=== PATIENT | female | born 1990 | race Caucasian/White ===

== ENCOUNTER 2024-07-30 12:27 | Emergency (ER) | payer MEDICAID, SELFPAY ==
[2024-07-30 12:28] VITALS: BMI 23.3
[2024-07-30 13:27] VITALS: BP 117/81; PULSE 109; RESP 16; TEMP 36.9; O2SAT 99
--- NOTE | 2024-07-30 13:33 | XR_ITS ---
Examination: Complete OB ultrasound, less than 14 weeks, transabdominal Date and time of exam: July 22, 2024 1420 hrs. Indications: Pelvic pain and vaginal bleeding onset today Technique: Obstetrical ultrasound images less than 14 weeks performed via transabdominal imaging Findings: A normal shaped single intrauterine gestation is present in the uterus. pole 2.7 cm corresponds to 9 weeks 3 days gestational age Cardiac motion 164 BPM No subchorionic hemorrhage Ultrasonographic survey of visible and placental structures unremarkable. Amniotic fluid volume appears appropriate for this estimated gestational age. Right ovary 3.7 x 4.9 x 4.4 cm arterial flow 30 x 28 mm cyst Left ovary 2.7 x 2.4 cm arterial flow Impression: Viable intrauterine gestation 9 weeks 3 days No subchorionic hemorrhage.
--- NOTE | 2024-07-30 13:33 | PD.EDRME ---
Rapid Medical Screening Exam RME Arrival date/time: 07/30/24 12:27 33-year-old female A0 approximately 8 weeks presents emergency department complaining of vaginal spotting and abdominal cramping that started today. Chief Complaint: Urogenital-Female Time Seen by Provider: 07/30/24 13:24 Vital signs: Vital Signs Temperature 98.4 F 07/30/24 13:27 Pulse Rate 109 H 07/30/24 13:27 Respiratory Rate 16 07/30/24 13:27 Blood Pressure 117/81 07/30/24 13:27 Pulse Oximetry (%) 99 07/30/24 13:27 Oxygen Delivery Method Room Air 07/30/24 13:27 Vital signs reviewed by provider: Yes
[2024-07-30 14:37] LABS: Collection Type, Urine Clean Catch
[2024-07-30 14:41] LABS: Basophils % (Auto) 0 % (0-2.5); Eosinophils % (Auto) 0 % (0-10); Hemoglobin 13.5 g/dL (12.0-16.0); Immature Granulocytes % (Auto) 1 % (0-0); Immature Granulocytes Auto 0.07 Thou/mm3 (0.00-0.00); Lymphocytes % (Auto) 15 % (10-50); Mean Corpuscular HGB Conc 34.6 g/dl (31.0-37.0); Mean Corpuscular Hemoglobin 30.5 pg (25.0-35.0); Mean Corpuscular Volume 88 fL (80-100); Monocytes # (Auto) 0.4 Thou/mm3 (0.0-0.8); Monocytes % (Auto) 3 % (0-12); Neutrophils # (Auto) 10.8 Thou/mm3 (1.8-7.7); Neutrophils % (Auto) 81 % (37-80); Nucleated Red Blood Cell % 0 /100 WBC (0); Platelet Count 531 Thou/mm3 (140-440); RDW Standard Deviation 38.3 fL (36.4-46.3); Red Blood Count 4.42 Miln/mm3 (4.00-5.20); White Blood Count 13.3 Thou/mm3 (3.6-11.0)
[2024-07-30 14:55] LABS: Amorphous Crystals,Urine Present (Absent); Bilirubin,Urine Negative (Negative); Blood,Urine Trace (Negative); Clarity,Urine Turbid (Clear/Hazy); Color,Urine Yellow (Lt Yel-Yel); Culture Indicated,Urine Contaminated; Glucose, Urine Negative (Negative); Ketones,Urine 3+ (Negative); Leukocyte Esterase,Urine Positive (Negative); Nitrite,Urine Positive (Negative); Protein,Urine Trace (Neg - Trace); RBC,Urine 5 /hpf (0-3); Specific Gravity,Urine 1.021 (1.001-1.035); Squamous Epithelial Cell,Urine 17 /hpf (0-5); Urobilinogen,Urine Negative mg/dL (0.0-1.0); WBC,Urine 61 /hpf (0-5)
[2024-07-30 14:57] LABS: Bacteria,Urine 3+
[2024-07-30 14:58] VITALS: BP 119/82; PULSE 105; RESP 19; TEMP 36.8; O2SAT 100
[2024-07-30 15:12] LABS: Alanine Aminotransferase 13 U/L (10-49); Albumin, Serum 4.8 gm/dL (3.5-5.0); Albumin/Globulin Ratio 1.5 (1.2-2.2); Alkaline Phosphatase 72 U/L (46-116); Anion Gap 9 (7-16); Aspartate Amino Transferase 11 U/L (0-34); BUN/Creatinine Ratio 8 Ratio (12-20); Bilirubin,Total 0.2 mg/dL (0.3-1.2); Blood Urea Nitrogen 5 mg/dL (9-23); Calcium 9.7 mg/dL (8.3-10.6); Calcium (Corrected) 9.7 mg/dL (8.5-10.1); Carbon Dioxide 21.4 mMol/L (20.0-31.0); Chloride 106 mMol/L (98-107); Creatinine (Component) 0.6 mg/dL (0.6-1.3); Estimated Creatinine Clearance 122.2 mL/min (>60); Globulin 3.1 gm/dL (2.3-3.5); Glucose 91 mg/dL (74-106); Osmolality,Calculated 269 (275-295); Potassium 3.6 mMol/L (3.4-5.1); Sodium 136 mMol/L (136-145); Total Protein 7.9 gm/dL (5.7-8.2); eGFR > 60 See Note
[2024-07-30 15:49] LABS: Beta HCG,Quantitative 129941 mIU/mL (<5.0)
--- NOTE | 2024-07-30 16:50 | PD.EDFMALE ---
ED Female Urogenital RME/HPI General Chief complaint: Urogenital-Female Stated complaint: ABD PAIN/SPOTTING TODAY, + PREG Time Seen by Provider: 07/30/24 13:24 Arrival date/time: 07/30/24 12:27 This is a 33-year-old female A0 approximately 8 weeks presents emergency department complaining of vaginal spotting and abdominal cramping that started today. NO other symptoms reported. RME / HPI RME / HPI Narrative: 07/30/24 12:27 33-year-old female A0 approximately 8 weeks presents emergency department complaining of vaginal spotting and abdominal cramping that started today. Related Data Previous Rx's ?Medication ?Instructions ?Recorded cephalexin 500 mg capsule 500 mg PO Q8H 7 days #21 caps 07/30/24 Allergies Allergy/AdvReac Type Severity Reaction Status Date / Time No Known Allergies Allergy Verified 07/30/24 12:31 Review of Systems Review of Systems Systems Reviewed: All systems reviewed, normal except as documented Past Medical History Past Medical History Comments PMH COMMENT: denies ED Exam General General appearance: Present alert and in no apparent distress Head Head exam: Present atraumatic Eye Eye exam: Present normal appearance, PERRL and EOMI ENT ENT exam: Present normal exam, normal oropharynx and mucous membranes moist Neck Neck exam: Present normal inspection, full ROM and trachea midline Chest Chest inspection: Present normal inspection and symmetric chest wall rise Respiratory Respiratory exam: Present normal lung sounds bilaterally Cardiovascular Cardiovascular exam: Present regular rate, normal rhythm and normal heart sounds Abdominal Exam Abdominal exam: Present soft Extremities Exam Extremities exam: Present normal inspection and full ROM Back Exam Back exam: Present normal inspection and full ROM Neurological Exam Neurological exam: Present alert, oriented X3 and CN II-XII intact Psychiatric Psychiatric exam: Present normal affect and normal mood Skin Skin exam: Present warm, dry, intact and normal color Course Quality Measures none Orders Category Date Time Status US OB <= 14 weeks fetus Stat Exams 07/30/24 13:33 Completed ABO/RH Type Stat Lab 07/30/24 13:55 Completed Beta HCG,Quantitative Stat Lab 07/30/24 13:55 Completed CBC Stat Lab 07/30/24 13:55 Completed CMP [Comprehensive Metabolic Panel] Stat Lab 07/30/24 13:55 Completed Urinalysis, C/S if Indicated Stat Lab 07/30/24 14:15 Completed Vital Signs Vital signs: Vital Signs Temperature 98.4 F 07/30/24 13:27 Pulse Rate 109 H 07/30/24 13:27 Respiratory Rate 16 07/30/24 13:27 Blood Pressure 117/81 07/30/24 13:27 Pulse Oximetry (%) 99 07/30/24 13:27 Oxygen Delivery Method Room Air 07/30/24 13:27 Urogenital - Female MDM Narrative MDM Narrative:: us : Findings: A normal shaped single intrauterine gestation is present in the uterus. pole 2.7 cm corresponds to 9 weeks 3 days gestational age Cardiac motion 164 BPM No subchorionic hemorrhage Ultrasonographic survey of visible and placental structures unremarkable. Amniotic fluid volume appears appropriate for this estimated gestational age. Right ovary 3.7 x 4.9 x 4.4 cm arterial flow 30 x 28 mm cyst Left ovary 2.7 x 2.4 cm arterial flow Impression: Viable intrauterine gestation 9 weeks 3 days No subchorionic hemorrhage. Utrine positive for uti. Will send pt home on antibiotics> Pt told to follow up with primary provider in 1-2 days. Patient data External records reviewed:: [facility] previous records Clinical information provided by:: patient Social determinants that could affect healthcare access:: none Patient has the following chronic illnesses:: none How is presenting disease/condition affected by chronic disease/condition?: no chronic disease Evaluation data The following diagnostics were reviewed and interpreted by me:: lab results and radiology exam(s) Lab and/or radiology exams considered but not ordered:: none Interpretation Summary: see note Medications / Prescriptions Medications or Prescriptions considered but not ordered:: none Medication administrations:: none Consultations Consultation(s) initiated? (list below): No Diagnosis Urogenital Female Differential Diagnosis: urinary tract infection, dysmenorrhea and other (miscarriage ) Most likely diagnosis given after review of the tests above:: uti Admission Indicated Admission indicated?: not indicated Admission Request Was there a request for admission?: No Disposition Plan Disposition Plan: Discharge Discharge Attestation Discharge Attestation: The patient and all family members were given an opportunity to ask questions and understood the discharge instructions. Discharge instructions specifically effects, indications for sooner follow up or return to the emergency department, and the expected course of current diagnosis. Patient condition: Stable Discharge Plan Plan Patient Disposition: HOME (Self Care) Patient condition on transfer: Stable Prescriptions/Referrals Prescriptions/Med Rec: New cephalexin 500 mg capsule 500 mg PO Q8H 7 Days Qty: 21 0RF Referrals: Art Nixon MD [Primary Care Provider] - In 1 week Problem List Clinical Impression: Urinary tract infection, Threatened miscarriage, 9 weeks gestation of Patient/Caregiver Discharge Instructions Discharge Activity: activity as tolerated Education Materials: ED Possible Miscarriage ..., ED CYSTITIS Female Adult Additional Instructions: Take antibiotics as prescribed. May take Tylenol for pain. Follow-up with primary provider in 1 to 2 days. Come back to the emergency room if symptoms change or worsen. Print Language: Guatemalan Stand Alone Forms: Ana Maria Award Info., Patient Portal Info Letter [facility] Supervising Physician [facility] Supervising Physician: talisha
== END 2024-07-30 17:01 | disposition home or self-care (01) ==
PROVIDERS: Emergency Provider Emergency Medicine; PCP Family Medicine
DX: O20.0 Threatened abortion (principal); O23.41 Unspecified infection of urinary tract in pregnancy, first trimester; N39.0 Urinary tract infection, site not specified; Z3A.09 9 weeks gestation of pregnancy
CPT/HCPCS: 36415; 76801; 80053; 81001; 84702; 85025; 86900; 86901; 99284

== ENCOUNTER 2024-09-24 17:34 | Emergency (ER) | payer MEDICAID, SELFPAY ==
[2024-09-24 17:35] VITALS: BMI 27.4
[2024-09-24 18:15] VITALS: BP 113/75; PULSE 97; RESP 16; TEMP 37.1; O2SAT 99
--- NOTE | 2024-09-24 18:25 | XR_ITS ---
Examination: Complete OB ultrasound greater than 14 weeks Date and time of exam: September 24, 2024 2105 hrs. Indications: Pelvic pain and cramping today Findings: Viable intrauterine single fetus with single amniotic sac presentation breech Cardiac motion 153 BPM Placenta anterior grade 0 Umbilical cord insertion seen Amniotic fluid index 12.0 cm Cervix 3.6 cm Ovaries obscured by bowel gas. Composite estimated gestational age based on BPD, head circumference, abdominal circumference, femur length is 17 weeks 5 days Estimated weight 206 g. Survey of intracranial anatomy, spinal anatomy, abdominal anatomy, four-chamber heart performed with no abnormalities identified. Impression: Viable intrauterine gestation breech presentation.
--- NOTE | 2024-09-24 18:28 | EDNOTE_ITS ---
<Statement entered by Mayuri Minaya MD - 09/24/24 23:40> As co-signing physician, I was present and available for consult prn. I concur with the plan and care as documented by the midlevel provider. ED OB Contraction Preg RMI/HPI General Chief complaint: OB/Uterine Contractions Stated complaint: Preg 16 weeks. Time Seen by Provider: 09/24/24 18:24 Arrival date/time: 09/24/24 17:34 33F at approximately 16 weeks and with no significant PMH presents to ED with 2 days of pelvic pain/cramping and vaginal spotting. Patient denies dysuria. Limitations: no limitations Related Data Allergies Allergy/AdvReac Type Severity Reaction Status Date / Time No Known Allergies Allergy Verified 07/30/24 12:31 Review of Systems Review of Systems Systems Reviewed: All systems reviewed, normal except as documented Constitutional Constitutional: Reports system reviewed and no additional complaints, except as documented, Denies fever(s) and Denies headache(s) ENT Ears, Nose, Mouth, and Throat: Denies disequilibrium and Denies headache(s) Cardiovascular Cardiovascular: Reports system reviewed and no additional complaints, except as documented, Denies chest pain and Denies dyspnea Respiratory Respiratory: Reports system reviewed and no additional complaints, except as documented, Denies cough and Denies dyspnea Gastrointestinal Gastrointestinal: Reports system reviewed and no additional complaints, except as documented, Denies abdominal pain, Denies nausea and Denies vomiting Genitourinary Genitourinary: Reports as per HPI, Reports abnormal vaginal bleeding and Reports pelvic pain Neurologic Neurologic: Reports system reviewed and no additional complaints, except as documented, Denies confusion, Denies disequilibrium and Denies headache(s) Psychiatric Psychiatric: Denies confusion Past Medical History Social History SMOKING STATUS: Never smoker ED Exam General Limitations: Present no limitations General appearance: Present alert and in no apparent distress Head Head exam: Present atraumatic Eye Eye exam: Present normal appearance, PERRL and EOMI ENT ENT exam: Present normal exam, normal oropharynx and mucous membranes moist Neck Neck exam: Present normal inspection, full ROM and trachea midline Chest Chest inspection: Present normal inspection and symmetric chest wall rise Respiratory Respiratory exam: Present normal lung sounds bilaterally Cardiovascular Cardiovascular exam: Present regular rate, normal rhythm and normal heart sounds Abdominal Exam Abdominal exam: Present soft and normal bowel sounds Extremities Exam Extremities exam: Present normal inspection and full ROM Back Exam Back exam: Present normal inspection and full ROM Neurological Exam Neurological exam: Present alert, oriented X3 and CN II-XII intact Psychiatric Psychiatric exam: Present normal affect and normal mood Skin Skin exam: Present warm, dry, intact and normal color Course Quality Measures none Orders Category Date Time Status US OB >= 14 weeks Fetus Stat Exams 09/24/24 18:25 Completed ABO/RH Type Stat Lab 09/24/24 18:44 Completed Beta HCG,Quantitative Stat Lab 09/24/24 18:44 Completed CBC Stat Lab 09/24/24 18:44 Completed CMP [Comprehensive Metabolic Panel] Stat Lab 09/24/24 18:44 Completed Urinalysis, C/S if Indicated Stat Lab 09/24/24 19:30 Completed Urine Culture Stat Lab 09/24/24 19:30 Received Vital Signs Vital signs: Vital Signs Temperature 98.8 F 09/24/24 18:15 Pulse Rate 97 09/24/24 18:15 Respiratory Rate 16 09/24/24 18:15 Blood Pressure 113/75 09/24/24 18:15 Pulse Oximetry (%) 99 09/24/24 18:15 Oxygen Delivery Method Room Air 09/24/24 18:15 O2 at 99% on RA and WNLs Vaginal Bleeding MDM Narrative MDM Narrative: 33F at approximately 16 weeks and with no significant PMH presents to ED with 2 days of pelvic pain/cramping and vaginal spotting. Patient denies dysuria. Physical exam reveals no pelvic tenderness. Patient is afebrile, calm, and alert. US normal IUP with normal FHR. Beta HCG WNLs. CMP unremarkable. UA contaminated but no gross UTI. [employer] given. A+. Patient data External records reviewed:: [facility] [place] previous records Clinical information provided by:: patient Social determinants that could affect healthcare access:: none Patient has the following chronic illnesses:: none How is presenting disease/condition affected by chronic disease/condition?: no chronic disease Evaluation data The following diagnostics were reviewed and interpreted by me:: lab results and radiology exam(s) Lab and/or radiology exams considered but not ordered:: ordered Interpretation Summary: above Medications / Prescriptions Medications or Prescriptions considered but not ordered:: not ordered Medication administrations:: n/a Consultations Consultation(s) initiated? (list below): No Diagnosis Vaginal Bleeding Differential Diagnosis: missed , threatened , dysfunctional uterine bleeding, menometrorrhagia, incomplete , ectopic without intrauterine and vaginal bleeding Most likely diagnosis given after review of the tests above:: vaginal bleeding Admission Indicated Admission indicated?: not indicated Admission Request Was there a request for admission?: No Disposition Plan Disposition Plan: Discharge Discharge Attestation Discharge Attestation: The patient and all family members were given an opportunity to ask questions and understood the discharge instructions. Discharge instructions specifically effects, indications for sooner follow up or return to the emergency department, and the expected course of current diagnosis. Patient condition: Stable Discharge Plan Plan Patient Disposition: HOME (Self Care) Disposition Comment: Stable Prescriptions/Referrals Referrals: No Primary/Family,Physician [Referring Provider] - In 1 week Problem List Clinical Impression: Vaginal bleeding Patient/Caregiver Discharge Instructions Additional Instructions: Please follow-up with PCP within 24-48 hours and return immediately if symptoms worsen. Print Language: Welsh Stand Alone Forms: Work/School Release, Patient Portal Info Letter SUNG/KARINA Supervising Physician SUNG/KARINA Supervising Physician: Dr. Minaya
[2024-09-24 19:00] LABS: Basophils % (Auto) 1 % (0-2.5); Eosinophils # (Auto) 0.1 Thou/mm3 (0.0-0.5); Eosinophils % (Auto) 1 % (0-10); Hemoglobin 11.8 g/dL (12.0-16.0); Immature Granulocytes % (Auto) 0 % (0-0); Immature Granulocytes Auto 0.03 Thou/mm3 (0.00-0.00); Lymphocytes % (Auto) 30 % (10-50); Mean Corpuscular HGB Conc 34.7 g/dl (31.0-37.0); Mean Corpuscular Hemoglobin 30.6 pg (25.0-35.0); Mean Corpuscular Volume 88 fL (80-100); Monocytes # (Auto) 0.5 Thou/mm3 (0.0-0.8); Monocytes % (Auto) 7 % (0-12); Neutrophils # (Auto) 4.1 Thou/mm3 (1.8-7.7); Neutrophils % (Auto) 61 % (37-80); Nucleated Red Blood Cell % 0 /100 WBC (0); Platelet Count 319 Thou/mm3 (140-440); RDW Standard Deviation 41.2 fL (36.4-46.3); Red Blood Count 3.86 Miln/mm3 (4.00-5.20); White Blood Count 6.8 Thou/mm3 (3.6-11.0)
[2024-09-24 19:21] LABS: Alanine Aminotransferase 17 U/L (10-49); Albumin, Serum 3.7 gm/dL (3.5-5.0); Albumin/Globulin Ratio 1.4 (1.2-2.2); Alkaline Phosphatase 55 U/L (46-116); Anion Gap 8 (7-16); Aspartate Amino Transferase 18 U/L (0-34); BUN/Creatinine Ratio 10 Ratio (12-20); Bilirubin,Total 0.2 mg/dL (0.3-1.2); Blood Urea Nitrogen 6 mg/dL (9-23); Calcium 8.9 mg/dL (8.3-10.6); Calcium (Corrected) 9.1 mg/dL (8.5-10.1); Carbon Dioxide 22.8 mMol/L (20.0-31.0); Chloride 106 mMol/L (98-107); Creatinine (Component) 0.6 mg/dL (0.6-1.3); Estimated Creatinine Clearance 142.5 mL/min (>60); Globulin 2.6 gm/dL (2.3-3.5); Glucose 106 mg/dL (74-106); Osmolality,Calculated 271 (275-295); Potassium 3.8 mMol/L (3.4-5.1); Sodium 137 mMol/L (136-145); Total Protein 6.3 gm/dL (5.7-8.2); eGFR > 60 See Note
[2024-09-24 20:28] LABS: Collection Type, Urine Clean Catch
[2024-09-24 20:34] LABS: Bacteria,Urine Rare; Bilirubin,Urine Negative (Negative); Blood,Urine Negative (Negative); Clarity,Urine Turbid (Clear/Hazy); Color,Urine Yellow (Lt Yel-Yel); Culture Indicated,Urine Yes; Glucose, Urine Negative (Negative); Hyaline Casts,Urine < 1 /hpf (0-1); Ketones,Urine Negative (Negative); Leukocyte Esterase,Urine Positive (Negative); Nitrite,Urine Negative (Negative); Protein,Urine Trace (Neg - Trace); RBC,Urine 4 /hpf (0-3); Specific Gravity,Urine 1.023 (1.001-1.035); Squamous Epithelial Cell,Urine 8 /hpf (0-5); Urobilinogen,Urine Negative mg/dL (0.0-1.0); WBC,Urine 14 /hpf (0-5)
[2024-09-24 20:57] LABS: Beta HCG,Quantitative 22378 mIU/mL (<5.0)
== END 2024-09-24 22:22 | disposition home or self-care (01) ==
PROVIDERS: Physician Assistant; Emergency Provider Emergency Medicine; PCP Family Medicine
DX: O20.9 Hemorrhage in early pregnancy, unspecified (principal); Z3A.16 16 weeks gestation of pregnancy
CPT/HCPCS: 36415; 76805; 80053; 81001; 84702; 85025; 86900; 86901; 87077; 87086; 87186; 99284

== ENCOUNTER 2024-12-28 14:26 | Emergency (ER) | payer MEDICAID, SELFPAY ==
[2024-12-28 14:42] VITALS: BP 110/75; PULSE 104; RESP 18; TEMP 36.8; O2SAT 97
--- NOTE | 2024-12-28 14:51 | EDNOTE_ITS ---
<Statement entered by Mayuri Minaya MD - 12/28/24 16:52> As co-signing physician, I was present and available for consult prn. I concur with the plan and care as documented by the midlevel provider. ED Skin Abcess FB-RME/HPI General Chief complaint: Skin/Abscess/Foreign Body Stated complaint: ITCHINESS FROM HEAD TO TOE W/ BUMPS ; 24WKS Time Seen by Provider: 12/28/24 14:30 Source: patient Arrival date/time: 12/28/24 14:26 34-year-old female with no known medical history presents to the emergency room with a chief complaint of itchiness and a rash to her arms and back x 1 week. Patient is currently 24 weeks . Mode of arrival: ambulatory Limitations: no limitations Related Data Allergies Allergy/AdvReac Type Severity Reaction Status Date / Time No Known Allergies Allergy Verified 12/28/24 14:30 Review of Systems Review of Systems Systems Reviewed: All systems reviewed, normal except as documented Constitutional Constitutional: Reports system reviewed and no additional complaints, except as documented, Denies fatigue, Denies fever(s), Denies headache(s) and Denies weakness Eyes Eyes: Reports system reviewed and no additional complaints, except as documented, Denies blurry vision and Denies change in vision ENT Ears, Nose, Mouth, and Throat: Reports system reviewed and no additional compla ints, except as documented, Denies otalgia, Denies headache(s), Denies nasal congestion, Denies throat swelling and Denies vertigo Cardiovascular Cardiovascular: Reports system reviewed and no additional complaints, except as documented, Denies chest pain, Denies dyspnea and Denies dyspnea on exertion Respiratory Respiratory: Reports system reviewed and no additional complaints, except as documented, Denies chest congestion, Denies cough, Denies dyspnea, Denies dyspnea on exertion and Denies wheezing Gastrointestinal Gastrointestinal: Reports system reviewed and no additional complaints, except as documented, Denies abdominal pain, Denies cramping, Denies nausea and Denies vomiting Genitourinary Genitourinary: Reports system reviewed and no additional complaints, except as documented Musculoskeletal Musculoskeletal: Reports system reviewed and no additional complaints, except as documented and Denies back pain Integumentary/Breasts Skin/Breast: Reports system reviewed and no additional complaints, except as documented and Denies wounds Neurologic Neurologic: Reports system reviewed and no additional complaints, except as documented, Denies confusion, Denies headache(s), Denies lack of coordination, Denies vertigo and Denies weakness Psychiatric Psychiatric: Reports system reviewed and no additional complaints, except as documented, Denies anxiety, Denies confusion, Denies depression, Denies paranoia, Denies suicidal ideation and Denies tactile hallucinations Endocrine Endocrine: Reports system reviewed and no additional complaints, except as documented and Denies fatigue Hematologic/Lymphatic Hematologic/Lymphatic: Reports system reviewed and no additional complaints, except as documented and Denies lymphadenopathy Allergic/Immunologic Allergic/Immunologic: Reports system reviewed and no additional complaints, except as documented, Denies throat swelling, Denies urticaria and Denies wheezing Past Medical History Social History SMOKING STATUS: Never smoker ED Exam General Limitations: Present no limitations General appearance: Present alert and in no apparent distress Head Head exam: Present atraumatic Eye Eye exam: Present normal appearance, PERRL and EOMI ENT ENT exam: Present normal exam, normal oropharynx and mucous membranes moist Neck Neck exam: Present normal inspection, full ROM and trachea midline Chest Chest inspection: Present normal inspection and symmetric chest wall rise Respiratory Respiratory exam: Present normal lung sounds bilaterally Cardiovascular Cardiovascular exam: Present regular rate, normal rhythm and normal heart sounds Abdominal Exam Abdominal exam: Present soft and normal bowel sounds Extremities Exam Extremities exam: Present normal inspection and full ROM Back Exam Back exam: Present normal inspection and full ROM Neurological Exam Neurological exam: Present alert, oriented X3 and CN II-XII intact Psychiatric Psychiatric exam: Present normal affect and normal mood Skin Skin exam: Present warm, dry, intact and normal color Expanded Skin Exam Type of lesion: Present rash Distribution: Present generalized, chest, abdomen, LUE and RUE Description: Present tenderness and erythematous Course Quality Measures none Orders Category Date Time Status DiphenhydrAMINE [Benadryl] Med 12/28/24 14:51 Discontinued 25 mg PO X1 ONE Vital Signs Vital signs: Vital Signs Temperature 98.2 F 12/28/24 14:42 Pulse Rate 104 H 12/28/24 14:42 Respiratory Rate 18 12/28/24 14:42 Blood Pressure 110/75 12/28/24 14:42 Pulse Oximetry (%) 97 12/28/24 14:42 Oxygen Delivery Method Room Air 12/28/24 14:42 Skin / Abscess / Foreign Body MDM Narrative MDM Narrative:: 34-year-old female with no known medical history presents to the emergency room with a chief complaint of itchiness and a rash to her arms and back x 1 week. Patient is currently 24 weeks . Patient is hemodynamically stable and in no apparent distress. There is no lip swelling tongue swelling or any respiratory distress. There is no tachypnea tachycardia and her O2 saturation 97% on room air Physical examination shows clear bilateral lung sounds with no wheezing or any stridor The patient has a generalized rash throughout her abdomen, right upper extremity, and chest area. Patient states it is very itchy. Patient was given antihistamines. Patient was called back for reevaluation and the patient had eloped prior to final disposition Patient data External records reviewed:: [facility] previous records Clinical information provided by:: patient Social determinants that could affect healthcare access:: none Patient has the following chronic illnesses:: No chronic illness How is presenting disease/condition affected by chronic disease/condition?: no chronic disease Evaluation data The following diagnostics were reviewed and interpreted by me:: lab results and radiology exam(s) Lab and/or radiology exams considered but not ordered:: Labs and radiology exams considered in order Interpretation Summary: N/A Medications / Prescriptions Medications or Prescriptions considered but not ordered:: No medication given Medication administrations:: Medication Administration History Discontinued Medications Diphenhydramine HCl (Diphenhydramine Elix 25 Mg/10 Ml Udc) 25 mg PO X1 ONE Stop: 12/28/24 14:52 No medication given Consultations Consultation(s) initiated? (list below): No Diagnosis Skin/Abscess Differential Diagnosis: allergic reaction to drug, cellulitis, insect bites, contact dermatitis and other Most likely diagnosis given after review of the tests above:: Allergic reaction Admission Indicated Admission indicated?: not indicated Admission Request Was there a request for admission?: No Disposition Plan Disposition Plan: Discharge Discharge Attestation Discharge Attestation: The patient and all family members were given an opportunity to ask questions and understood the discharge instructions. Discharge instructions specifically effects, indications for sooner follow up or return to the emergency department, and the expected course of current diagnosis. Patient condition: Stable Discharge Plan Plan Patient Disposition: Elopement Discharge Disposition comment: Stable Prescriptions/Referrals Referrals: Art Nixon MD [Primary Care Provider] - In 1 week Problem List Clinical Impression: Allergic reaction Patient/Caregiver Discharge Instructions Print Language: Albanian
--- NOTE | 2024-12-28 15:58 | PC.NURSE ---
nax1 @ [phone]
--- NOTE | 2024-12-28 16:02 | PC.NURSE ---
nax2. Patient not located in [facility] or outside.
--- NOTE | 2024-12-28 16:03 | PC.NURSE ---
nax2
--- NOTE | 2024-12-28 16:05 | PC.NURSE ---
nax2 at 1600.
== END 2024-12-28 16:00 | disposition left against medical advice (07) ==
PROVIDERS: Emergency Provider Emergency Medicine; PCP Family Medicine
DX: O26.92 Pregnancy related conditions, unspecified, second trimester (principal); R21 Rash and other nonspecific skin eruption; Z3A.24 24 weeks gestation of pregnancy; Z53.29 Procedure and treatment not carried out because of patient's decision for other reasons
CPT/HCPCS: 99281

== ENCOUNTER 2025-02-25 17:23 | Inpatient (IN) | payer MEDICAID, SELFPAY ==
[2025-02-25] VITALS (73 sets, daily range): BP systolic 88–155; BP diastolic 58–91; PULSE 97–219; RESP 18–99; TEMP 36.9–37.1; O2SAT 91–100; BMI 30.6
[2025-02-25 18:24] LABS: ROM Kit Exp Date# 11-15-27; ROM Kit Lot # 58102387; ROM Swab Mixed By: SAUCT; Rupture of Fetal Membranes Negative (Negative); Swb Mxed in Solvent 1 min? Yes
[2025-02-25] MEDS: RINGERS LACTATED 1000 ML 1,000 ML 100 ML IV ×2 (18:49→19:45)
[2025-02-25 19:14] LABS: Basophils # (Auto) 0.0 Thou/mm3 (0.0-0.2); Basophils % (Auto) 0 % (0-2.5); Eosinophils # (Auto) 0.1 Thou/mm3 (0.0-0.5); Eosinophils % (Auto) 1 % (0-10); Hematocrit 33.3 % (36.0-46.0); Hemoglobin 11.6 g/dL (12.0-16.0); Immature Granulocytes Auto 0.12 Thou/mm3 (0.00-0.00); Lymphocytes # (Auto) 2.0 Thou/mm3 (1.0-4.8); Lymphocytes % (Auto) 11 % (10-50); Mean Corpuscular HGB Conc 34.8 g/dl (31.0-37.0); Mean Corpuscular Hemoglobin 30.9 pg (25.0-35.0); Mean Corpuscular Volume 89 fL (80-100); Monocytes # (Auto) 1.0 Thou/mm3 (0.0-0.8); Monocytes % (Auto) 6 % (0-12); Neutrophils # (Auto) 14.5 Thou/mm3 (1.8-7.7); Neutrophils % (Auto) 82 % (37-80); Nucleated Red Blood Cell # 0.00 Thou/mm3 (0.00-0.00); Nucleated Red Blood Cell % 0 /100 WBC (0); Platelet Count 298 Thou/mm3 (140-440); RDW Standard Deviation 44.4 fL (36.4-46.3); Red Blood Count 3.75 Miln/mm3 (4.00-5.20); White Blood Count 17.7 Thou/mm3 (3.6-11.0)
[2025-02-25 19:46] LABS: Syphilis Nonreactive (Nonreactive)
--- NOTE | 2025-02-25 20:57 | ESHP_ITS ---
Documentation for date of: 02/25/25 OB Labor/Induct. HPI History of Present Illness Chief complaint: Possible ruptured membranes : 3 Para: 2 Term pregnancies: 2 pregnancies: 0 Living children: 2 History of Abortions: Spontaneous and Elective: 0 History of Vaginal deliveries: 0 History of sections: No History of : No ILIA: 03/02/25 Gestational Age (weeks): 39 Gestational Age (days): 2 History of present illness: The patient is a 34-year-old -0-0-2 with all of her care with [facility] who presented to triage around 6 PM reporting possible leaking. She is 39-2/7 weeks . She was seen in triage and the heart tones were noted to be in the 150s with decreased variability and subtle what appeared to be late decelerations. Definitely a category 2 tracing. Patient's AmniSure was negative but since there was concern for wellbeing, she was admitted for further evaluation. Once the patient had an IV started the heart tones quickly became reactive with no more decelerations. As patient is close to her due date she was admitted for an augmentation of labor. On admission she was 1 cm dilated I examined the patient approximately 3 hours later and she was 2 to 3 cm dilated 70% effaced -2 with a very posterior cervix. Patient will be admitted for augmentation of labor with Cytotec. She does desire epidural in active labor. She is group B strep negative. History of Present Adequate Care: Yes Obstetrical complications: none Medical complications: none Labs Maternal Blood Type: A Pos Labs: Positive: Rubella Titre, Negative: RPR, Hepatitis B, HIV, Chlamydia, Gonorrhea and Group Beta Strep and Unknown: Herpes Type 1 and Herpes Type 2 Past Medical History Surgical History SURGICAL: Negative Section Meds Home Medications and Allergies Home Medications ?Medication ?Instructions ?Recorded ?Confirmed ?Type vits no.130-ferrous fum tab 02/25/25 History 27 mg iron-folic acid 800 mcg tablet ( Vitamin) Allergies Allergy/AdvReac Type Severity Reaction Status Date / Time No Known Allergies Allergy Verified 02/25/25 19:23 OB Exam Physical Exam Vital signs: Temp Pulse Resp BP Pulse Ox O2 Del Method 98.4 F 112 H 18 136/91 H 99 Room Air 02/25/25 19:20 02/25/25 20:45 02/25/25 19:20 02/25/25 20:45 02/25/25 20:55 02/25/25 19:20 Detailed Labor and Delivery Exam Dilation (cm): 2 to 3 cm Cervix position: posterior station: -2 Consistency: medium Presentation: Vertex Membranes: intact monitor accelerations: 15x15 monitor decelerations: None MCFP variability: Marked (>25) Contraction frequency (min): Every 4 to 5 minutes Contraction intensity: Mild OB Results Labs 02/25/25 18:30 Labs: Short CBC 02/25/25 Range/Units 18:30 WBC 17.7 H (3.6-11.0) Thou/mm3 Hgb 11.6 L (12.0-16.0) g/dL Hct 33.3 L (36.0-46.0) % Plt Count 298 (140-440) Thou/mm3 OB Assessment & Plan Assessment and Plan (1) Supervision of high risk in third trimester: Status: Acute Assessment and plan: Patient will be admitted. We will augment with Cytotec. This was explained to the patient in detail and all questions answered. She had 2 vaginal deliveries in the past 1 was 15 years ago and 1 was 10 years ago. She denies any problems with her deliveries. Additional Plan Induction method: per misoprostol protocol Plan: induction and anticipate NVD Additional Plan Comment: Patient desires epidural and active labor.
[2025-02-25 20:58] LABS: Collection Type, Urine Voided
[2025-02-25 21:06] LABS: Amorphous Crystals,Urine Present (Absent); Bacteria,Urine 2+; Bilirubin,Urine Negative (Negative); Blood,Urine 3+ (Negative); Clarity,Urine Turbid (Clear/Hazy); Color,Urine Orange (Lt Yel-Yel); Glucose, Urine Negative (Negative); Ketones,Urine Trace (Negative); Leukocyte Esterase,Urine Positive (Negative); Nitrite,Urine Negative (Negative); PH,Urine 6.0 (5.0-7.0); Protein,Urine 1+ (Neg - Trace); RBC,Urine 422 /hpf (0-3); Specific Gravity,Urine 1.021 (1.001-1.035); Squamous Epithelial Cell,Urine 25 /hpf (0-5); Transitional Epi Cells,Urine 5 /hpf (0-5); Urobilinogen,Urine Negative mg/dL (0.0-1.0); WBC,Urine 2517 /hpf (0-5)
[2025-02-25] MEDS: cefTRIAXone/D5w 1gm IV premix 1 GM/50 ML BAG IV (22:58)
[2025-02-26] VITALS (116 sets, daily range): BP systolic 82–159; BP diastolic 49–93; PULSE 62–145; RESP 14–20; TEMP 36.4–37.9; O2SAT 88–100
[2025-02-26] MEDS: ceFAZolin/D5W 2 GM IV 2 GM/100 ML BAG IV ×3 (05:27→21:41)
[2025-02-26] MEDS: FAMOTIDINE INJ 10 MG/ML VIAL 2 ML 20 MG IV (05:27)
--- NOTE | 2025-02-26 05:38 | PD.LDPN ---
Documentation for date of: 02/26/25 OB Labor Progress Note Pain Control Pain control: tolerating well and epidural Pelvic Exam Dilation (cm): 8 Effacement (%): 70 station: -2 Amniotic membrane status: Ruptured Comments: IUPC in place Contractions Monitor mode: Internal Contraction frequency: 3-4 Contraction intensity: Moderate Status status: Category ll Comments: Baby with recurrent variables with overall good variability. Contractions are still spaced 4 minutes apart. Category 2 tracing. Unable to start Pitocin to augment labor secondary category 2 tracing. No significant cervical globe changer the last 5 hours. Will proceed with primary . Assessment and Plan Plan OB labor note: Comments: The patient was consented for a primary . The risks of the procedure were discussed with the patient including the risk of bleeding, infection, blood transfusion, damage to bowel, bladder, blood vessels, or other organs. Prolonged hospital stay and further surgery should any above occur. All questions were answered. All consents were signed.
--- NOTE | 2025-02-26 06:38 | PD.ADDPROG ---
Addendum Progress Note Addendum Date of report being addended: 02/26/25 Narrative: Error. The patient is only 3 cm dilated not 8 cm dilated. This is a correction to my last progress note.
[2025-02-26] MEDS: ACETAMINOPHEN IVPB 1,000 MG/100 ML VIAL 250 MG IV (07:06)
--- NOTE | 2025-02-26 07:31 | PD.GYNPROC ---
Operative Note - DESIGN ENGINEER PRODUCTS Procedure Date of procedure: 02/26/25 Procedure Performed: Primary low-transverse section Pre-Op diagnosis: IUP 39 4/7 weeks Persistent category 2 tracing, remote from delivery, not responsive to intrauterine resuscitative measures. Post-Op diagnosis: Same Anesthesia type: Epidural (Bolused) Fluids: crystalloid Fluid amount (mL): 1,000 Urine output (mL): 100 Specimen: none Implants: None Estimated blood loss (ml): 400 Findings: Liveborn male OA presentation with a loose nuchal cord x 1 no meconium Apgars were 8 and 9 weight was 8 pounds. Normal tubes uterus ovaries bilaterally Complications: none Narrative: The patient is a 34-year-old -0-0-2 history of a vaginal delivery x 2 in the past. Her boys are 15 and 10 years old. All care on complicated with [facility]. She is 39-4/7 weeks. She presented to triage for rule out ruptured membranes. Her baby had some late decelerations with minimal variability so she was admitted. Once we hydrated her the baby looked much better. However patient started reporting some bloody discharge and was starting to labor on her own 2 to 3 cm. She ruptured her bag in the middle the night. All night the baby would have periods of a reactive tracing followed by variable decelerations some of which were late. This persisted despite oxygen and multiple IV boluses and repositioning of the patient. Patient was still 3 cm dilated approximately 5 hours after her last exam. As the baby had a category 2 tracing not responding to resuscitative efforts, remote from delivery, the patient was consented for a primary low-transverse section. After obtaining informed consent, the patient was brought back to the operating room and her epidural was bolused. She was then prepped and draped in the dorsal supine position with a leftward tilt in a normal sterile fashion. Patient was given 2 g of Ancef by anesthesia. A Lin catheter had been inserted during the patient's labor. A Pfannenstiel skin incision was made with a scalpel and carried down to the underlying fascia. The fascia was incised the midline, and the fascial incision extended lateral using Romero scissors. The superior aspect of the fascia was grasped with Renea clamps, and the underlying rectus muscles dissected off using blunt and sharp dissection. This was repeated in the inferior aspect the incision. The rectus muscles were in the midline, and the peritoneum was picked up and entered sharply Metzenbaums. This was extended superiorly and inferiorly with good visualization of the bladder. The bladder blade was inserted and the uterus was incised in a low transverse fashion above the bladder reflection. The uterine incision was extended laterally using blunt dissection with the surgeon's fingers. The bag olivas was ruptured and clear fluid was noted. The bladder blade was removed, and the infant was delivered atraumatically. The cord was clamped and cut and the was handed off to the waiting pediatric staff. Cord gases were sent. Cord blood was collected. The placenta was then manually removed, and handed off the operating field. The uterine incision was repaired using 0 Monocryl in a running locked fashion. Excellent hemostasis was noted. The uterus was returned to the patient's abdominal cavity, and copious irrigation carried out with warm normal saline. The uterine incision was reexamined and noted to be hemostatic. After ensuring the rectus muscles were hemostatic these were reapproximated in the midline using a running suture of 0 Monocryl. The fascia was closed with 0 Vicryl in a running fashion. The subcutaneous tissues were irrigated and found to be hemostatic. These were reapproximated using a running suture of 2-0 chromic. The skin was closed with a subcuticular suture of 4-0 Monocryl. The patient tolerated the procedure well, sponge, lap, needle, and instrument counts were correct x 2. Patient went to the recovery area awake and in stable condition. Of note she did have a temperature in recovery of 100.3 ?F. The plan will be to keep the patient on Ancef x 24 hours. Surgical staff GIORGIO Rogers's RADIO STATION OPERATOR Diagnosis Discharge Diagnosis (1) care following delivery: Status: Acute Problem details: To post in stable condition (2) Supervision of high risk in third trimester: Status: Acute Problem List Completed Was Problem List Reviewed/Reconciled?: Yes
--- NOTE | 2025-02-26 07:50 | PD.LDDELS ---
Data (Gamble) Data Hx Section: No Reason for Primary Section: Persistent category 2 tracing, remote from delivery Maternal Blood Type: A Pos Rubella Titre: Positive RPR: Non-reactive Labs: Negative: RPR, Hepatitis B, HIV, Chlamydia, Gonorrhea and Group Beta Strep : 3 Term: 2 : 0 Livin Abortions: Spontaneous & Theraputic: 0 Delivery Data (Gamble) Labor Data Initiation of labor: Spontaneous Induction/Augmentation Agent: None ROM date: 02/25/25 ROM time: 22:00 Amniotic membrane rupture type: Spontaneous Amniotic fluid description: Light Meconium and Blood Tinged Delivery Data EDC: 03/02/25 EDC calculated by:: LMP/early US confirmation Date of arrival to unit: 02/25/25 Onset of labor date: 02/25/25 Onset of labor time: 22:00 delivery date: 02/26/25 delivery time: 06:01 Gestational age (weeks): 39 Gestational age (days): 4 Placenta delivery date: 02/26/25 Placenta delivery time: 06:02 Delivered by: rBi Lino ([facility]) Delivery nurse: CAROLYN QUINN [place] nurse: RY QUINN Custom Wood Stair Builder at delivery: Yes (DR. HARRIS) Support person(s) at delivery: SISTER Other staff at delivery: Leif LATHAM RN Delivery Method Delivery method: Low Transverse Presentation: Vertex position: OA Anesthesia Type Anesthesia Type: Epidural Anesthesia type: Epidural (Bolused) Delivery Room Medications Delivery room medications: Pitocin 20 u IV and See Anesthesia record Placenta Placenta delivery description: Manual Removal Cord blood sent to lab: Yes cord blood collection: Cord Blood Type, Arterial Cord Blood Gas and Venous Cord Blood Gas Episiotomy Episiotomy description: None EBL Estimated blood loss (ml): 400 Umbilical Cord cord description: 3 Vessels, Nuchal Cord and Loose Additional Procedures See op report Complications Complications: None Data (Gamble) [place] Data 's gender: Male Identification band number: [id number] weight (gms): 3640 g Weight (pounds): 8 lbs and 0.4 ozs 1 minute: 8 5 minutes: 9
[2025-02-26] MEDS: OXYTOCIN in NS 20 units 20 UNIT/1,000 ML BAG 125 UNIT IV (11:40)
[2025-02-26] MEDS: KETOROLAC INJ 30 MG/ML VIAL IVP ×2 (11:43→19:53)
[2025-02-26] MEDS: HYDROcodone/APAP 5/325 TABLET 1 TAB PO (13:57)
[2025-02-26] MEDS: HYDROcodone/APAP 5/325 TABLET 2 TAB PO (17:30)
[2025-02-26] MEDS: RINGERS LACTATED 1000 ML 1,000 ML 125 ML IV (21:37)
--- NOTE | 2025-02-26 22:16 | PC.NURSE ---
02/26/25 [id number] and [id number] RN precepting Leif Ludwig RN, review and agree with labor progress assessment charting.
[2025-02-27] VITALS: BP 100/65; PULSE 90; RESP 15; TEMP 36.9; O2SAT 97
[2025-02-27] MEDS: HYDROcodone/APAP 5/325 TABLET 2 TAB PO ×3 (00:01→14:12)
[2025-02-27] MEDS: KETOROLAC INJ 30 MG/ML VIAL IVP (03:04)
[2025-02-27 03:55] VITALS: BP 113/77; PULSE 97; RESP 16; TEMP 36.9; O2SAT 98
[2025-02-27] MEDS: ceFAZolin/D5W 2 GM IV 2 GM/100 ML BAG IV (05:43)
[2025-02-27 06:05] LABS: Basophils # (Auto) 0.1 Thou/mm3 (0.0-0.2); Basophils % (Auto) 0 % (0-2.5); Eosinophils # (Auto) 0.2 Thou/mm3 (0.0-0.5); Eosinophils % (Auto) 1 % (0-10); Hematocrit 28.1 % (36.0-46.0); Hemoglobin 9.4 g/dL (12.0-16.0); Immature Granulocytes Auto 0.27 Thou/mm3 (0.00-0.00); Lymphocytes # (Auto) 3.3 Thou/mm3 (1.0-4.8); Lymphocytes % (Auto) 19 % (10-50); Mean Corpuscular HGB Conc 33.5 g/dl (31.0-37.0); Mean Corpuscular Hemoglobin 30.5 pg (25.0-35.0); Mean Corpuscular Volume 91 fL (80-100); Monocytes # (Auto) 1.1 Thou/mm3 (0.0-0.8); Monocytes % (Auto) 7 % (0-12); Neutrophils # (Auto) 12.2 Thou/mm3 (1.8-7.7); Neutrophils % (Auto) 71 % (37-80); Nucleated Red Blood Cell # 0.00 Thou/mm3 (0.00-0.00); Nucleated Red Blood Cell % 0 /100 WBC (0); Platelet Count 256 Thou/mm3 (140-440); RDW Standard Deviation 46.4 fL (36.4-46.3); Red Blood Count 3.08 Miln/mm3 (4.00-5.20); White Blood Count 17.2 Thou/mm3 (3.6-11.0)
[2025-02-27] MEDS: SIMETHICONE 80 MG CHEW PO ×2 (07:54→14:12)
[2025-02-27] MEDS: DOCUSATE SOD 100 MG CAPSULE PO (07:54)
[2025-02-27 08:00] VITALS: BP 104/65; PULSE 71; RESP 16; TEMP 36.6; O2SAT 98
[2025-02-27 12:00] VITALS: BP 113/69; PULSE 75; RESP 18; TEMP 36.8; O2SAT 100
[2025-02-27] MEDS: Milk Of Magnesia Susp 30 ML UDC PO (14:11)
--- NOTE | 2025-02-27 18:15 | ESPR_ITS ---
Subjective Subjective Interval history: The patient is a 34-year-old G3 now P3003 status post primary [address] at [address] Amaris Roach for persistent category 2 tracing. This is her first C- section. Her boys are age 15 and 10. This morning she is eating breakfast resting comfortably in bed. She states her pain is controlled with oral pain medication. She is ambulating and passing flatus. She is breast and bottlefeeding. Exam Vital Signs Temp Pulse Resp BP Pulse Ox O2 Del Method 98.2 F 75 18 113/69 100 Room Air 02/27/25 12:00 02/27/25 12:00 02/27/25 12:00 02/27/25 12:00 02/27/25 12:00 02/27/25 12:00 Narrative Exam Fundus is firm. At umbilicus and nontender. Incision is clean dry and intact. Extremities show no significant edema or erythema. Objective Labs 02/27/25 05:04 Labs: Laboratory Results - last 24 hr 02/27/25 05:04 WBC 17.2 H RBC 3.08 L Hgb 9.4 L D Hct 28.1 L MCV 91 MCH 30.5 MCHC 33.5 RDW Std Deviation 46.4 H Plt Count 256 D Neut % (Auto) 71 Lymph % (Auto) 19 Victoria % (Auto) 7 Eos % (Auto) 1 Baso % (Auto) 0 Neut # (Auto) 12.2 H Lymph # (Auto) 3.3 Victoria # (Auto) 1.1 H Eos # (Auto) 0.2 Baso # (Auto) 0.1 Immature Gran # (Auto) 0.27 H Absolute Nucleated RBC 0.00 Immature Gran % 2 H Nucleated RBC % 0 Assessment & Plan Problem List (1) care following delivery: Problem details: Patient is doing well. Advance diet. Ambulate in halls. Hemoglobin is stable. Probable discharge postoperative day #2. Status: Acute (2) Supervision of high risk in third trimester: Status: Acute Time Spent With Patient Time: Total time spent is greater than 50% in coordination of care (as documented) at patient's floor/unit and/or counseling patient: Time with patient: less than 15 minutes
[2025-02-27] MEDS: IBUPROFEN TAB 400 MG TABLET 800 MG PO (19:25)
[2025-02-27 19:30] VITALS: BP 107/69; PULSE 90; RESP 18; TEMP 36.5; O2SAT 100
[2025-02-27] MEDS: HYDROcodone/APAP 5/325 TABLET 1 TAB PO (20:52)
[2025-02-28] MEDS: HYDROcodone/APAP 5/325 TABLET 1 TAB PO (01:02)
[2025-02-28] MEDS: SIMETHICONE 80 MG CHEW PO (01:02)
[2025-02-28] MEDS: Milk Of Magnesia Susp 30 ML UDC PO (01:05)
[2025-02-28 03:42] VITALS: BP 102/66; PULSE 73; RESP 14; TEMP 36.6; O2SAT 97
--- NOTE | 2025-02-28 07:48 | PD.LDPPPRG ---
Subjective Subjective Interval history: Delivery type: Patient doing well this morning. No acute complaints. Ambulating, tolerating p.o. and voiding without difficulty. HTN/Pre-Eclampsia screen: No chest pain, shortness of breath, headache, visual changes, epigastric or right upper quadrant pain. Breast-feeding, lochia diminishing. Bowel: Flatus+/ BM+ Exam Vital Signs Temp Pulse Resp BP Pulse Ox O2 Del Method 97.9 F 73 14 102/66 97 Room Air 02/28/25 03:42 02/28/25 03:42 02/28/25 03:42 02/28/25 03:42 02/28/25 03:42 02/28/25 03:42 Constitutional Constitutional: no acute distress Routine HEENT Exam Head: Present normocephalic and atraumatic Eye: Present EOMI and PERRL ENT: Present mucous membranes moist Routine Neck Exam Neck: Present supple and trachea midline Routine Respiratory Exam Respiratory: Present chest non-tender, lungs clear, normal breath sounds and no resp distress Routine Cardiovascular Exam Cardiovascular: Present RRR Routine Abdominal Exam Abdominal: Present soft and normoactive bowel sounds Routine Extremities Exam Extremities: Present full ROM Routine Skin Exam Skin: Present intact, dry and warm Routine Neurological Exam Neurological: Present alert, oriented X3 and CN II-XII intact Routine Psychiatric Exam Psychiatric: Present normal affect and normal thought process Objective Labs 02/27/25 05:04 Assessment & Plan Problem List (1) care following delivery: Status: Acute Assessment and plan: PPD/POD#2 1. Continue routine care 2. Transition to PO meds. 3. Encourage to ambulate/ breast-feed 4. Anticipate discharge home today. (2) Supervision of high risk in third trimester: Status: Acute Time Spent With Patient Time: Total time spent is greater than 50% in coordination of care (as documented) at patient's floor/unit and/or counseling patient:
--- NOTE | 2025-02-28 07:49 | ESDS_ITS ---
DS: Providers Provider Date of admission: 02/25/25 18:20 Primary care physician: Art Nixon MD Admitting Provider: Bri Lino MD ([facility]) Attending Provider on Admission: Amari Mckee MD Consults: 02/26/25 09:40 Referral Routine Comment: Attending Provider on DC: Amari Mckee MD Discharging Provider: Amari Mckee MD DS: Diagnosis Discharge Diagnosis (1) care following delivery: Status: Acute (2) Supervision of high risk in third trimester: Status: Acute Problem List Completed Was Problem List Reviewed/Reconciled?: Yes Summary/Hosp Course Brief History: The patient is a 34-year-old -0-0-2 with all of her care with [facility] who presented to triage around 6 PM reporting possible leaking. She is 39-2/7 weeks . She was seen in triage and the heart tones were noted to be in the 150s with decreased variability and subtle what appeared to be late decelerations. Definitely a category 2 tracing. Patient's AmniSure was negative but since there was concern for wellbeing, she was admitted for further evaluation. Once the patient had an IV started the heart tones quickly became reactive with no more decelerations. As patient is close to her due date she was admitted for an augmentation of labor. On ad mission she was 1 cm dilated I examined the patient approximately 3 hours later and she was 2 to 3 cm dilated 70% effaced -2 with a very posterior cervix. Patient will be admitted for augmentation of labor with Cytotec. She does desire epidural in active labor. She is group B strep negative. Peripartum Data Delivery Method: Low Transverse Episiotomy Description: None Procedures: Procedures Operation Date: 02/26/25 05:38 Actual Procedure Side Surgeon p in OB Bilateral Bri Lino ([facility])MD Time Spent with Patient Time attestation: Total time spent providing and/or coordinating discharge services: Exam Vital Signs Temp Pulse Resp BP Pulse Ox O2 Del Method 97.9 F 73 14 102/66 97 Room Air 02/28/25 03:42 02/28/25 03:42 02/28/25 03:42 02/28/25 03:42 02/28/25 03:42 02/28/25 03:42 Discharge Plan Plan Patient Disposition: HOME (Self Care) Patient condition on transfer: Stable Prescriptions/Referrals Prescriptions/Med Rec: New hydrocodone-acetaminophen 5-325 mg Tablet 1 tab PO Q6HR MDD 4 PRN (Reason: Patient rated pain 9 to 10) 5 Days Qty: 20 0RF ibuprofen 400 mg Tablet 800 mg PO Q8HR PRN (Reason: Pain Scale 4-6 (Moderate) 10 Days Qty: 40 0RF docusate sodium 100 mg Capsule 100 mg PO QDAY 30 Days Qty: 30 0RF Continued Vitamin 27 mg iron- 800 mcg tablet Patient Comments: TAKE 1 TABLET BY MOUTH ONCE A DAY Referrals: Addie Carroll MD [Physician] - Patient/Caregiver Discharge Instructions Education Materials: After a , C Section Dc Print Language: Lao Stand Alone Forms: Ana Maria Award Info., Patient Portal Info Letter, DC from Surgery Discharge Order Discharge Orders: Discharge (Routine); Ordered 02/28/25 Ordered By: Amari Mckee Planned Discharge Date 02/28/25
[2025-02-28 08:00] VITALS: BP 122/77; PULSE 102; RESP 18; TEMP 36.4; O2SAT 98
[2025-02-28] MEDS: HYDROcodone/APAP 5/325 TABLET 2 TAB PO (08:01)
[2025-02-28] MEDS: DOCUSATE SOD 100 MG CAPSULE PO (08:01)
[2025-02-28 11:57] VITALS: BP 127/89; PULSE 92; RESP 20; O2SAT 98
== END 2025-02-28 13:00 | disposition home or self-care (01) | DRG 540 ==
LOC: S4SX 02-26 06:22 → S4NX 02-26 06:24
PROVIDERS: Admitting Provider Obstetrics & Gynecology; PCP Family Medicine; Visit Provider Obstetrics & Gynecology
PROC: 10D00Z1 Extraction of Products of Conception, Low, Open Approach (ICD-10-PCS; CPT 59514; principal; 2025-02-26 05:45)
DX: O76 Abnormality in fetal heart rate and rhythm complicating labor and delivery (principal); O77.0 Labor and delivery complicated by meconium in amniotic fluid; O69.81X0 Labor and delivery complicated by cord around neck, without compression, not applicable or unspecified; Z37.0 Single live birth; Z3A.39 39 weeks gestation of pregnancy
CPT/HCPCS: 36415; 59025; 59409; 81001; 84112; 85025; 86780; 86850; 86900; 86901; 87086; 94762; A4314; A4649; J0131; J0689; J0696; J1100; J1885; J2250; J2371; J2405; J2590; J2795; J3010; J3490; J7120; A9270